=== PATIENT | female | born 1965 | race Two or more races ===

== ENCOUNTER 2017-10-05 20:54 | Emergency (ER) | payer BC, MEDICAID ==
[~2017-10-05] VITALS: Ht 162.6 cm; Wt 95.3 kg
[2017-10-05] MEDS ORDERED: SODIUM CHLORIDE 0.9% 1,000 ML IV ONE (21:08)
[2017-10-05] MEDS ORDERED: methylPREDNISolone SOD SUCC 125 MG/2 ML VL IV ONE (21:15)
[2017-10-05] MEDS ORDERED: TERBUTALINE SULFATE 1 MG/ML 1ML VIAL SC ONE (21:15)
[2017-10-05] MEDS ORDERED: ALBUTEROL SULF 2.5 MG/0.5ML(0.5%) NEB SOLN NEB ONE (21:15)
[2017-10-05] MEDS ORDERED: IPRATROPIUM BROM 0.5 MG/2.5ML INH SOL NEB ONE (21:15)
[2017-10-05] MEDS: MAGNESIUM SULFATE 1GM/100ML 100 ML IV SCH ×2 (21:15→22:15)
[2017-10-05 21:28] LABS: Hematocrit 41.7 % (36.0-46.0); Hemoglobin 14.2 g/dL (12.2-16.2); Mean Corpuscular Hemoglobin 31.4 pg (28.0-32.0); Mean Corpuscular Hgb Conc. 34.1 g/dL (32.0-36.0); Mean Corpuscular Volume 92.2 fL (80.0-100.0); Platelet Count (auto) 305 10^3/uL (140-450); Red Blood Cells 4.53 10^6/uL (4.0-5.20); Red Cell Distribution Width 13.2 % (11.8-14.3); White Blood Cell 7.4 10^3/uL (4.4-10.8)
[2017-10-05 21:34] LABS: Basophils % (manual) 0 (0.0-2.0); Blast Cells 0; Metamyelocytes % 0; Myelocytes % 0; Promyelocytes % 0; Reactive Lymphocytes 0
[2017-10-05 21:51] LABS: Albumin 4.2 g/dL (3.4-5.0); BUN/Creatinine Ratio 17.6; Bilirubin, Total 0.3 mg/dL (0.2-1.0); Calcium 9.2 mg/dL (8.5-10.1); Magnesium 2.5 mg/dL (1.6-2.6); Potassium 3.8 mmol/L (3.5-5.1); Total Protein 7.6 g/dL (6.4-8.2)
[2017-10-05 22:58] LABS: Band Neutrophils % (manual) 2; Eosinophils % (manual) 16 (0-7); Lymphocytes % (manual) 41 (10.0-50.0); Monocytes % (manual) 7 (0-12)
[2017-10-05] MEDS ORDERED: amLODIPine BESYLATE 5 MG TAB PO ONE (23:00)
[2017-10-06] VITALS: BP 140/72
== END 2017-10-06 01:00 | disposition home or self-care (01) ==
LOC: ER 20:54
DX: J45.902 Unspecified asthma with status asthmaticus (principal)
CPT/HCPCS: 36415; 71045; 80053; 83735; 83880; 85007; 85027; 93005; 94640; 94761; 96365; 96366; 96372; 96375; 99285; J2930; J3105; J3475; J7030

== ENCOUNTER → 2017-11-01 | Outpatient (CLI) | payer BC ==
[2017-11-01 11:57] LABS: Follicle Stimulating Hormone 5.05 IU/L (SEE BELOW)
[2017-11-01 13:30] LABS: Leuteinizing Hormone 7.2 IU/L
== END | disposition home or self-care (01) ==
LOC: LAB 08:21
PROVIDERS: ATTEND Specialist
DX: N95.1 Menopausal and female climacteric states (principal); J45.909 Unspecified asthma, uncomplicated
CPT/HCPCS: 36415; 83001; 83002; 84443; 87086

== ENCOUNTER → 2018-07-23 | Outpatient (CLI) | payer BC | END | disposition home or self-care (01) | LOC: LAB 13:44 | PROVIDERS: ATTEND Physician Assistant | DX: M54.5 Low back pain (principal) | CPT/HCPCS: 36415; 82565; 84520 ==